=== PATIENT | female | born 1940 | race Caucasian/White ===

== ENCOUNTER 2018-07-20 05:41 | Inpatient (IN) | payer OTHER, BC ==
[2018-07-11 10:03] LABS: HEMATOCRIT 50.2 % (37.0-47.0); HEMOGLOBIN 17.5 gm/dL (12.0-15.0); MCH 35.9 pg (26.0-34.0); MCHC 34.9 g/dL (28.0-37.0); MCV 102.9 fL (80.0-100.0); RBC 4.88 mil/uL (4.20-5.00); RDW 12.1 % (10.5-14.5); WBC 4.1 thou/uL (4.0-11.0)
[2018-07-11 10:06] LABS: CALCIUM 10.1 mg/dL (8.5-10.1); CREATININE 0.8 mg/dL (0.6-1.0); POTASSIUM 5.7 mmol/L (3.5-5.1); URINE BILIRUBIN NEGATIVE (Negative); URINE BLOOD NEGATIVE (Negative); URINE CLARITY CLEAR; URINE COLOR YELLOW; URINE GLUCOSE-RANDOM* NEGATIVE (Negative); URINE KETONES NEGATIVE (Negative); URINE LEUKOCYTES-REFLEX NEGATIVE (Negative); URINE NITRITE-REFLEX NEGATIVE (Negative); URINE PROTEIN (DIPSTICK) NEGATIVE (Negative); URINE SPECIFIC GRAVITY < 1.005 (1.005-1.035); URINE UROBILINOGEN 0.2 E.U./dl (0.2-1.0)
[2018-07-11 10:11] LABS: PROTIME 9.6 Seconds (9.3-11.4)
[~2018-07-20] VITALS: Ht 154.9 cm; Wt 53.1 kg
[~2018-07-20 05:41] MED LIST: CALCIUM 500 +1 EAC5 PO; CENTRUM SILVER1 EAC4 PO; FLEXERIL PO; NORCO 5-325 TA1 EACH PO; PRESERVISION T1 EACH PO; VICODIN 5-5001 EACH PO; VITAMIN D2000 UNIT PO
[2018-07-20 07:21] VITALS: BP 151/87
--- NOTE | 2018-07-20 16:16 | NUR ---
PT ADMITTED RELATED TO LEFT TOTAL SHOULDER REPLACEMENT. CM REVEIWED CHART AND SPOKE WITH CARE TEAM. CM MET WITH PT AND PARTNER AT BEDSIDE THIS DAY. PT IS A&O X4. CM ROLE INTRODUCED. PT INDICATED SHE LIVES IN A HOUSE WITH 1 STEP TO ENTER AND 1 STEPS INSIDE. PT INDICATED SHE HAD HOME HEALTH IN THAT PAST AFTER HIP REPLACEMENTS. PT INDICATED SHE WOULD LIKE TO HAVE HOME HEALTH UPON [place] THIS TIME. CM TO FOLLOW INDICATED WITH DC PLANNING.
[2018-07-20 19:17] VITALS: BP 118/67
[2018-07-21 03:48] VITALS: BP 120/74
[2018-07-21 04:38] LABS: HEMATOCRIT 37.4 % (37.0-47.0); HEMOGLOBIN 12.4 gm/dL (12.0-15.0)
[2018-07-21 04:48] LABS: POTASSIUM 4.4 mmol/L (3.5-5.1)
--- NOTE | 2018-07-21 05:46 | NUR ---
PT WITH L ARM IN SLING.POLAR REJI IN PLACE. SHE WALKED TO THE BATHROOM X 1 BUT THEN WANTED TO USE THE BEDPAN REST OF THE NIGHT.VOIDING OKAY. PT HAS REGAINED SENSATION TO L HAND AND FINGERS. AFEBRILE. GIVEN PERCOCET FOR A 5/10 PAIN. DENIES NAUSEA THIS MORNING.
[2018-07-21 07:30] VITALS: BP 94/58
[2018-07-21 16:05] VITALS: BP 120/73
--- NOTE | 2018-07-21 16:24 | NUR ---
CARE TEAM INDICATED THAT THEY ANTICPATE PT DISHCARGING HOME TOMORROW WITH HOME HEALTH SERVICES. FOOD AND NUTRITION SERVICES SUPERVISOR INDICATED THAT THEIR OFFICE HAD ARRANGED HH SERVICES. CM ABLE TO ASSIST SHOULD ANY OTHER DME NEEDS ARISE.
--- NOTE | 2018-07-21 17:25 | NUR ---
PT ASSESSED AT START OF SHIFT. PT PROGRESSING WELL. LT SHOULDER IMMOBILIZER INTACT. GOOD SENS AND CIRC TO LT FINGERS. WORKED W/ PT AND OT AND DID WELL. NEEDED BETTER PAIN CONTROL SO STAYED TODAY. TRANSFERRED TO [facility] AT THIS TIME W/ ALL BELONGINGS. REPORT GIVEN TO ACCEPTING RN.
--- NOTE | 2018-07-21 17:46 | NUR ---
REPORT GIVEN BY NURSE DANIEL. PATIENT TRANSFERRED TO UNIT AT 1740. ORIENTED TO UNIT AND SETTLED. PATIENT CURRENTLY SITTING IN BED EATING DINNER.
[2018-07-21 17:49] VITALS: BP 138/77
--- NOTE | 2018-07-22 03:30 | NUR ---
PATIENT ALERT AND ORIENTED X4. C/O PAIN IN L SHOULDER, MED GIVEN. POLAR PACK AND IMMOBILIZER ON L SHOULDER. SCD'S ON. UP TO BSC WITH ASSIST OF ONE. SLEPT OFF AND ON DURING THE NIGHT.
--- NOTE | 2018-07-22 07:41 | NUR ---
PT IS A70X4, SLIGHTLY [place], REPORT GIVEN POLAR PACK NEEDS MORE ICE, WILL TAKE CARE OF EMERGENCT NEEDS AND REILL HER POLAR PACK. ENCOURAGED PT TO USE CALL [facility] FOR ANY NEEDS AND WILL STAY ON TOP OF PAIN MEDICATION, NO SKIN ISSUES, NICOTINE PATCH, LR IVF RUNNING STILL, POST OP DAY TWO REPORTED.
[2018-07-22 08:45] VITALS: BP 115/64
--- NOTE | 2018-07-22 10:50 | O ---
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 POSTOPERATIVE DIAGNOSES: Left shoulder pain, massive recurrent rotator cuff tear, glenohumeral joint osteoarthritis, biceps tendinopathy. PROCEDURE PERFORMED: Left reverse total shoulder arthroplasty with open biceps tenodesis. SURGEON: Ezekiel Cohn MD FRAME BUILDER: Madeline Chapman PA-C ANESTHESIA: General with preoperative ultrasound-guided interscalene block. FLUIDS: 500 mL crystalloid. ESTIMATED BLOOD LOSS: 25 mL. IMPLANTS UTILIZED: [employer] extend reverse total shoulder size 10 porous coated stem with a size 1 epiphysis, a standard metaglene with a 38 eccentric glenosphere. DESCRIPTION OF PROCEDURE: After proper identification of the patient and operative site in preoperative holding area, the operative site was signed by myself. Prophylactic antibiotics given. The patient elected to receive an interscalene block after reviewing the risks, benefits, alternatives and potential complications with Anesthesia. After a satisfactory block, the patient was brought back to the operative suite. After induction of satisfactory general anesthesia, the patient was very carefully positioned in the beach chair position with head of bed elevated approximately 40 degrees. With the patient's cervical fusion and stiffness, the head and neck was very carefully positioned in a neutral position. The left shoulder was sterilely prepped and draped in usual manner. Final skin draping was with Ioban. A Huoshi limb positioning system was utilized. Anterior deltopectoral approach was planned. Skin was incised sharply. Full thickness skin flaps were developed. Cephalic vein was identified and retracted laterally. Subdeltoid adhesions were carefully opened. Dick deltoid retractor was utilized and biceps tendinopathy and subluxation of the upper portion of this was noted. Partial thickness tearing was appreciated on the biceps. This was tenodesed to the undersurface of the pectoralis major tendon. 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 Rotator interval was opened. The patient had a fairly well preserved subscapularis which was released off the lesser tuberosity. There were complete tears of the supraspinatus and infraspinatus with teres minor still intact. The rotator cuff appeared irreparable. Degenerative changes along the more superior aspect of the glenohumeral joint were appreciated. Capsule was released off the inferior humerus. It was carefully externally rotated and using the appropriate guides, the proximal humerus was cut in the patient's retroversion of approximately 25 degrees. Peripheral osteophytes were carefully removed. The patient had a very small bone stature. This was reamed up to a size 10 stem, which matched the preoperative templating. Protection plate was applied. Attention was divided to the glenoid. Great care was taken to identify and protect the axillary nerve throughout the entire procedure. Anterior capsule was released off the subscapularis. A right angle was used to bluntly dissect the soft tissues. The labrum and remaining biceps tendon were carefully circumferentially released. The inferior capsule was carefully released off the glenoid as well as a small portion of the long head of the triceps insertion. A lighted Bankart retractor was placed deep. There was excellent exposure of the glenoid. The patient had a very old small overall footprint of the glenoid. The Metaglene guide pin was inserted with the appropriate guide. Its position and trajectory was verified to be in satisfactory position. Glenoid face was reamed with power reamer as well as the hand Chandler reamer and remaining soft tissue was carefully removed. Step drill was utilized and there was small perforation anteriorly with probably 80% of the distal aspect of the hole. Reaming was otherwise covered. Standard metaglene was carefully impacted into position and had good rotational stability. Superior and inferior locking screws were drilled and placed. These had good purchase. These were 36 inferiorly, 30 superiorly with two 18 mm screws used in the anterior and posterior dimensions that were nonlocking. Screws were sequentially tightened. Locking screws were then tightened. Next, a 38 eccentric glenosphere was placed over a guidewire. The tightening screw was rotated counterclockwise until a click was noted. Glenosphere appeared to be fully seated. It was then tightened by hand, impacted and tightened 3 additional times until it was fully seated. It was well positioned. The eccentricity was placed inferiorly. At this point, humerus was then again delivered. Acetabular reamer was used to ream the epiphysis and this appeared centered on the canal. A size 10 trial with +6 polyethylene provided the best overall fit and stability and 2 drill holes were placed in the anterior cortex of the humerus. A #2 FiberWires were passed for repair of the subscapularis. Joint was thoroughly irrigated with normal saline multiple times throughout the procedure. The stem was prepared on the back table. It was carefully impacted into position and had good rotational stability. The sutures had been passed around the prosthesis. Next, trials were utilized and the final polyethylene implanted was a +6 polyethylene. This provided good stability of the shoulder as well as tension of the soft tissues. Subscapularis was repaired with modified S[place] technique. The patient could easily be externally rotated 30-35 degrees. Joint was again thoroughly irrigated. 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 Deltopectoral interval was closed with 0 Vicryl, 2-0 Vicryl. The subcutaneous tissues, final skin closure was with running Monocryl, sealed with Dermabond. Sterile dressing was applied. She was placed in a sling and abduction pillow, awakened and transferred to the recovery room in stable condition. <ELECTRONICALLY SIGNED> By: Ezekiel Cohn MD 07/22/18 1050 [id number] Ezekiel Cohn MD /nt
--- NOTE | 2018-07-22 11:16 | NUR ---
PHYSICIAN EXITED STATING PT COULD BE D/C'D IF PAIN UNDER CONTROL, WILL ACK ORDERS AND MONITOR PATIENT, GIVING PAIN MEDS Q4H AND ICE KEPT ON AFFECTED AREA
--- NOTE | 2018-07-22 11:37 | NUR ---
LAST BM WAS ONEAL, GAS, AND LITTLE APPETITE, DECLINES ADM OF SENNA SHE STATES SHE'LL DO IT WITH HER SENNA AND MIRALAX AT HOME
--- NOTE | 2018-07-22 14:12 | NUR ---
DISCHARGE NOTE: MANI reviewed chart and spoke with nursing. Pt was [facility] to [facility] from and is medically stable for discharge home today. Orders written for HH. Per previous SW, ortho office has arranged pt's HH. MANI left voice message for SUPERVISOR [employer] at ortho office to confirm. Awaiting call back at this time. MANI is following to finalize discharge.
--- NOTE | 2018-07-22 14:47 | NUR ---
PHYSICIAN CALL: PT STATES HER PAIN IS NOT UNDER CONTROL; HAS BEEN IN [employer]ING W/SPOUSE AND NURSES AND ALL OF A SUDDEN SAID SHE IS NOT READY TO BE D/C'D D/T PAIN. WILL CONTINUE TO ADM PO PAIN MEDS ALONG WITH COMPLEMENTARY IV, RATES PAIN 04/06. TALKED W/ANSWERING SERVICE TO GIVE DR. HURTDAO. SURGEON HAD MENTIONED IF HER PAIN WAS NOT CONTROLLED SHE WOULD NOT NEED TO BE D/C'D
--- NOTE | 2018-07-22 15:06 | NUR ---
ANNA Tovar/NI RETURNED CALL AND SAID THEY'D KEEP HER OVERNIGHT AND CHECK ON HER IN THE A.M.
[2018-07-22 15:13] VITALS: BP 115/64
[2018-07-22 19:36] VITALS: BP 124/75
--- NOTE | 2018-07-23 05:13 | NUR ---
ASSUMED CARE OF PATIENT AT 1900. VSS. ASSESSMENT COMPLETED AT 2100 AND IS DOCUMENTED. PRN PERCOCET PO AND MORPHINE IV GIVEN FOR C/O LEFT SHOULDER PAIN WITH MINIMAL EFFECT. ICE AND REPOSITIONING ALSO UTILIZED TO DECREASE PAIN WITH SOME RELIEF VOICED. IMMOBILIZER WORN FOR LEFT SHOULDER THROUGHOUT THE NIGHT. RIGHT WRIST PIV PATENT AND SALINE LOCKED. PT UP TO BSC SEVERAL TIMES THROUGHOUT THE NIGHT. PT CURRENTLY RESTING IN BED IN NO ACUTE DISTRESS. CALL LIGHT WITHIN REACH. BED LOCKED AND IN LOWEST POSITION. WCTM.
[2018-07-23 07:30] VITALS: BP 117/69
--- NOTE | 2018-07-23 07:30 | NUR ---
ASSUMED PT CARE AT 0700. ASSESSMENT COMPLETED AND IS CHARTED AROUND 0730. VITAL SIGNS STABLE. PT RESTING IN BED. AWAKE, ALERT/ORIENTED X4. REPORTS PAIN RATED 8/10 IN SHOULDER. REQUESTED MORPHINE. DRESSING IS CDI. IMMOBILIZER IN PLACE. NEUROVASCULAR INTACT TO LEFT ARM. POLAR PACK REFILLED WITH ICE AND IS FUNCTIONING NORMALLY. NEW IV SITE STARTED TO RIGHT ARM OLD ONE INFILTRATED. WILL CONTINUE WITH CURRENT CARE.
--- NOTE | 2018-07-23 14:11 | NUR ---
PT REQUESTED IV MORPHINE AROUND 1130. PT RATED PAIN 9/10. PHYSICIAN NOTIFIED AND CHANGED MADE TO PO PAIN MEDICATION. LIDOCAINE PATCH ALSO APPLIED. WILL CONTINUE TO MONITOR AND DISMISS IF PAIN UNDER CONTROL.
[2018-07-23] MEDS ORDERED: COLACE 100 MG100 MG PO (14:23)
[2018-07-23] MEDS ORDERED: SENNA8.6 MG PO (14:23)
[2018-07-23] MEDS ORDERED: LIDOPATCH1 EACH TRANSDERM (14:23)
[2018-07-23] MEDS ORDERED: OXYCODONE-APAP1 EAC6 PO (14:23)
--- NOTE | 2018-07-23 16:47 | NUR ---
DISMISSED PT IN STABLE CONDITION VIA WHEELCHAIR.
== END 2018-07-23 16:48 | disposition home health service (06) | DRG 483 ==
LOC: PRE 05:41 → 4E 05:43 → TBA 05:43 → PRE 05:44 → 4E 11:23 → PRE 11:27 → SICU 07-21 17:48 → ENTRNSPT 07-23 15:54 → SICU 07-23 16:48
PROVIDERS: Physician Assistant Surgical; ADMIT Orthopaedic Surgery Sports Medicine
DX: M75.102 Unspecified rotator cuff tear or rupture of left shoulder, not specified as traumatic (principal); M19.012 Primary osteoarthritis, left shoulder; M75.22 Bicipital tendinitis, left shoulder; G47.33 Obstructive sleep apnea (adult) (pediatric); E66.9 Obesity, unspecified; M81.0 Age-related osteoporosis without current pathological fracture; E55.9 Vitamin D deficiency, unspecified; F17.210 Nicotine dependence, cigarettes, uncomplicated; M16.0 Bilateral primary osteoarthritis of hip; Z79.899 Other long term (current) drug therapy; Z68.22 Body mass index [BMI] 22.0-22.9, adult; Z98.49 Cataract extraction status, unspecified eye
CPT/HCPCS: 10783; 15002; 50010; 50101; 50172; 50386; 50417; 50697; 50733; 50935; 51320; 52001; 52138; 52256; 52282; 53000; 53078; 54118; 55430; 56525; 56526; 56530; 57095; 57103; 62110; 62900; 64039; 65130; 70005